=== PATIENT | female | born 1955 | race Caucasian/White ===

== ENCOUNTER 2023-02-01 10:58 | Emergency (ER) | payer MEDICAID, MEDICARE | END 2023-02-01 12:00 | disposition home or self-care (01) | LOC: LB.ED 10:58 | DX: R59.0 Localized enlarged lymph nodes (principal); Z88.1 Allergy status to other antibiotic agents; Z88.0 Allergy status to penicillin; Z88.2 Allergy status to sulfonamides | CPT/HCPCS: 87430; 99282; 99283 ==

== ENCOUNTER 2024-11-13 10:34 | Day surgery (SDC) | payer MEDICARE ==
[2024-11-13] MEDS ORDERED: Propofol 500 MG/50 ML SDV ONE (13:30)
== END 2024-11-13 15:08 | disposition home or self-care (01) ==
LOC: LB.SDS 10:34
PROVIDERS: ATTEND Surgery
DX: Z12.11 Encounter for screening for malignant neoplasm of colon (principal); D12.3 Benign neoplasm of transverse colon; K57.30 Diverticulosis of large intestine without perforation or abscess without bleeding; Z85.72 Personal history of non-Hodgkin lymphomas
CPT/HCPCS: 45385; J2704; J7030